=== PATIENT | male | born 1930 | race Caucasian/White ===

== ENCOUNTER → 2019-02-05 | Outpatient (REF) | payer MEDICARE, BC ==
[~2019-02-05] MED LIST: AMLODIPINE5 MG PO; ASPIRIN CHEWABL81 MG OR; BAYER ASA325 MG PO; CARVEDILOL25 MG PO; COREG25 MG PO; COZAAR100 MG PO; DIOVAN160 MG PO; JANUVIA50 MG PO; LISINOP/HCTZ1 TA1 PO; LORTAB 7.5 PO; METFORMIN1000 MG PO; METFORMIN500 MG PO; SPIRONOLACT25 MG PO; VYTORIN 10/401 TAB PO; VYTORIN1 TA1 OR
[2019-02-05 11:23] LABS: HEMATOCRIT 41.3 % (39.0-50.0); HEMOGLOBIN 13.1 g/dl (14.0-18.0); IMMATURE GRANULOCYTES 0.3 % (0.0-5.0); MEAN CELL VOLUME 89.6 fL CALC (80.0-100.0); MEAN CORPUSCULAR HGB 28.4 pG CALC (26.0-32.0); MEAN CORPUSCULAR HGB CONC 31.7 g/L CALC (32.0-36.0); NEUT# 5.3 thou/uL (1.82-7.42); RED BLOOD COUNT 4.61 mill/uL (4.70-6.10); RED CELL DISTRI WIDTH 13.5 % (11.5-15.5)
[2019-02-05 11:40] LABS: ALBUMIN 3.7 g/dL (3.2-5.0); ALKALINE PHOSPHATASE 79 u/l (38-126); ANION GAP 15 (6-22 (CALC)); BILIRUBIN, TOTAL 0.9 mg/dL (0.0-1.4); BUN 34 mg/dL (8-23); BUN/CREATININE RATIO 35 (12-20 (CALC)); CALCULATED LDLCHOLESTEROL 72 mg/dL (62-129 (CALC)); CARBON DIOXIDE 28 mmol/l (22-30); CHLORIDE 100 mmol/l (95-108); CHOLESTEROL HDL RATIO 4.2 (<4.4 (CALC)); GFR > 60 ML/MIN (>=60 (CALC)); GFR FOR AFR.AMER. > 60 ML/MIN (>=60 (CALC)); HDL CHOLESTEROL 32 mg/dL (>=40); POTASSIUM 4.2 mmol/l (3.5-5.1); SGOT/AST 24 u/l (19-48); SODIUM 138 mmol/l (137-146); TOTAL CHOLESTEROL 135 mg/dl (0-199); TOTAL PROTEIN 6.3 g/dL (6.3-8.2); TOTAL TRIGLYCERIDES 153 mg/dl (30-149); VLDL CHOLESTROL 31 mg/dl (0-38 (CALC))
[2019-02-05 12:13] LABS: TSH, 3RD GENERATION 4.26 uIU/mL (0.47 - 4.68)
== END | disposition home or self-care (01) ==
LOC: LAB 10:30
PROVIDERS: ATTEND Internal Medicine
DX: Z12.5 Encounter for screening for malignant neoplasm of prostate (principal); E11.9 Type 2 diabetes mellitus without complications; I10 Essential (primary) hypertension; E78.49 Other hyperlipidemia

== ENCOUNTER 2020-01-20 11:28 | Inpatient (IN) | payer MEDICARE, BC ==
[~2020-01-20] VITALS: Ht 180.3 cm; Wt 113.8 kg
--- NOTE | 2020-01-20 13:04 | NUR ---
PT TO ROOM VIA JAYLEN; AT BEDSIDE
[2020-01-20 13:37] LABS: HEMATOCRIT 39.9 % (39.0-50.0); HEMOGLOBIN 12.6 g/dl (14.0-18.0); IMMATURE GRANULOCYTES 0.2 % (0.0-5.0); MEAN CELL VOLUME 88.3 fL CALC (80.0-100.0); MEAN CORPUSCULAR HGB 27.9 pG CALC (26.0-32.0); MEAN CORPUSCULAR HGB CONC 31.6 g/L CALC (32.0-36.0); NEUT# 3.25 thou/uL (1.82-7.42); RED BLOOD COUNT 4.52 mill/uL (4.70-6.10); RED CELL DISTRI WIDTH 14.8 % (11.5-15.5)
--- NOTE | 2020-01-20 14:00 | NUR ---
PT SITTING UP ON STRETCHER; NO S/S OF DISTRESS NOTED; IV ANTIBIOTICS INFUSING; VSS; PT ADVISED ON CONTINUED WAIT TIME; DENIES ANY NEEDS AT THIS TIME; CALL LIGHT WITHIN REACH; WILL CONTINUE TO MONITOR
[2020-01-20] MEDS ORDERED: LISINOP/HCTZ1 TA1 PO (14:18)
[2020-01-20 14:21] LABS: CREATININE 1.7 mg/dL (0.7-1.3); POTASSIUM 3.5 mmol/l (3.5-5.1)
[2020-01-20] MEDS ORDERED: SIMVASTATIN40 MG PO (14:22)
[2020-01-20] MEDS ORDERED: LANTUS100 UNIT/M IJ (14:23)
[2020-01-20] MEDS ORDERED: EQ ASPIRIN81 M1 PO (14:24)
[2020-01-20] MEDS ORDERED: MELATONIN1 MG PO (14:24)
--- NOTE | 2020-01-20 15:00 | NUR ---
PT RESTING ON STRETCHER; NO S/S OF DISTRESS NOTED; PT DENIES ANY OTHER NEEDS AT THIS TIME; VSS; PT ADVISED OF CONTINUED WAIT TIME; WILL CONTINUE TO MONITOR
--- NOTE | 2020-01-20 16:00 | NUR ---
DR RODARTE AT BEDSIDE TO DISCUSS POC AND FINDINGS; HEPARIN DRIP INFUSING PER STANDING ORDER; PT DENIES ANY NEEDS AT THIS TIME;
--- NOTE | 2020-01-20 17:00 | NUR ---
PT ASSSITED TO BR AT THIS TIME; PT AMB WITH WEAK GAIT; PT DENIES ANY NEEDS AT THIS TIME;
--- NOTE | 2020-01-20 18:00 | NUR ---
PT SITTING UP ON STRETCHER; MEAL TRAY GIVEN; ADVISED OF CONTINUED WAIT TIME
--- NOTE | 2020-01-20 18:15 | NUR ---
PT ARRIVED TO THE UNIT VIA STRETCHER ACCOMPANIED BY STAFF. IV SITE IS FREE FROM REDNESS OR EDEMA. PT HAD A MASK IN PLACE,
[2020-01-20 18:20] VITALS: BP 154/74
--- NOTE | 2020-01-20 18:20 | NUR ---
Admission Note Report Given to: SHARON REED Transported by: Wheelchair X Stretcher Transported with: X Nurse Transporter X Patent IV O2 Assistant Credit Manager Location: ICU X MS2
--- NOTE | 2020-01-20 20:49 | NUR ---
PT ASSESSMENT AND ADMISSION COMPLETED AT THIS TIME. PT LOCX4. PT COUGHING W/PRODUCTIVE YELLOW SPUTUM PRODUCED. REPORTS 1 LOOSE STOOL THIS DAY, DENIES EMESIS THIS DAY. WILL CONTINUE TO MONITOR, PT ENCOURAGED TO CALL NEEDS ARISE.
--- NOTE | 2020-01-20 22:25 | NUR ---
HEPARIN DRIP CHANGED PER STANDING ORDERS @800UN/16MLS/HR FOR PTT OF 73.7 AT THIS TIME. PT APPEARS TO BE TOLERATING WELL.
[2020-01-21] VITALS (9 sets, daily range): BP systolic 120–170; BP diastolic 45–76
--- NOTE | 2020-01-21 | NUR ---
ASSISTED PT TO RESTROOM AND BACK TO BED. DENIES ANY OTHER NEEDS. IVF AND HEP DRIP ARE RUNNING TO 20LFA, SITE APPEARS HEALTHY.
--- NOTE | 2020-01-21 03:40 | NUR ---
pt c/o bleeding from iv site. Small amount of blood coming from iv site, site redressed, appears healthy and pt instructed to call if he notices any bleeding at all. No other s/o bleeding at this time. EMERGENCY VETERINARY ASSISTANT in w/pt at this time upon my leaving room.
--- NOTE | 2020-01-21 05:27 | NUR ---
PT ASSISTED TO BATHROOM AND BACK TO BED. ASSISTED PT IN REPOSITIONING. DENIES ANY OTHER NEEDS.CALL LIGHT AT SIDE.
[2020-01-21 05:44] LABS: ALBUMIN 3.3 g/dL (3.2-5.0); BILIRUBIN, TOTAL 0.6 mg/dL (0.0-1.4); CREATININE 1.4 mg/dL (0.7-1.3); POTASSIUM 3.3 mmol/l (3.5-5.1); TOTAL PROTEIN 6.2 g/dL (6.3-8.2)
[2020-01-21 05:48] LABS: HEMATOCRIT 37.4 % (39.0-50.0); HEMOGLOBIN 11.9 g/dl (14.0-18.0); IMMATURE GRANULOCYTES 0.5 % (0.0-5.0); MEAN CELL VOLUME 86.6 fL CALC (80.0-100.0); MEAN CORPUSCULAR HGB 27.5 pG CALC (26.0-32.0); MEAN CORPUSCULAR HGB CONC 31.8 g/L CALC (32.0-36.0); NEUT# 1.45 thou/uL (1.82-7.42); RED BLOOD COUNT 4.32 mill/uL (4.70-6.10); RED CELL DISTRI WIDTH 14.3 % (11.5-15.5)
--- NOTE | 2020-01-21 07:50 | NUR ---
ASSESSMENT IS COMPLETEDD: IV SITE WAS PULLED OUT BY PT. CATHETER INTACT, HR IS REG,PULSES ARE STRONG X4, ABD IS SOFT WITH ACTIVE BS. PT HAS TRACE EDEMA NOTED ON ANKLES. BREATH SOUNDS ARE WHEEZING IN UPPER AND CLEAR IN LOWER. TELE MONITOR IN PLACE.
--- NOTE | 2020-01-21 09:22 | NUR ---
SPOKE WITH [facility] RE: HEPARIN SQ , WILL BE HELD DUE TO HAVING THE HEPARIN DRIP.
--- NOTE | 2020-01-21 10:26 | NUR ---
SPOKE WITH SIN RIVAS FROM ER, EXPLAINED THAT PT WAS BEING CHECKED BY OT AND PT , HAD HIM WALKING AND GETTING UP FROM THE BED,
--- NOTE | 2020-01-21 12:15 | NUR ---
PT HAS BEEN SITTING IN THE CHAIR. NO DISTRESS NOTED. IV SITE IS FREE FROM REDNESS OR EDMEA.
--- NOTE | 2020-01-21 16:15 | NUR ---
PT IS RELAXING IN BED WITH NO DISTRESS NOTED. IV SITE IS FREE FROM REDNESS OR EDEMA.
[2020-01-21] MEDS ORDERED: COREG25 MG PO (16:39)
--- NOTE | 2020-01-21 17:45 | NUR ---
PT TRANSPORTED TO HAVE CT SCAN OF THE CHEST. CONTINUE TO OSBERVE AND MONITOR.
--- NOTE | 2020-01-21 20:05 | NUR ---
PT SLEEPING AT THIS TIME. NO S/O DISTRESS NOTED.
--- NOTE | 2020-01-21 21:45 | NUR ---
TREKKING GUIDE RECEIVED PHONE CALL FROM RADIOLOGIST REGARDING SCAN RESULTS FOR PT. PHYSICIAN NOTIFIED, NO NEW ORDERS AT THIS TIME. PHYSICIAN STATED THAT HE WILL MEET W/PT AND FAMILY IN THE MORNING REGARDING RESULTS AND POC.
--- NOTE | 2020-01-22 00:34 | NUR ---
PT V/S ASSESSED AND PT MEDICATED ORDERS PROVIDE. DENIES ANY OTHER NEEDS AT THIS TIME. CALL LIGHT IS AT SIDE. NO S/O DISTRESS NOTED. PT REMARKED THAT HE THINKS HE IS GOING HOME TOMORROW, I ENCOURAGED PT TO HAVE OR FAMILY MEMBER TO COME IN THE MORNING SO THAT THEY WOULD BE HERE FOR DOCTOR TO DISCUSS DISCHARGE AND CARE. HE REPLIED, "THEY CAN GET HERE IN 5 MINUTES." WILL CONTINUE TO MONITOR.
--- NOTE | 2020-01-22 04:30 | NUR ---
PT MEDICATED ORDERS PROVIDE AND V/S ASSESSED AT THIS TIME. PT DENIES ANY OTHER NEEDS AT THIS TIME.
[2020-01-22 04:32] VITALS: BP 138/68
[2020-01-22 05:39] LABS: HEMATOCRIT 38.6 % (39.0-50.0); HEMOGLOBIN 11.9 g/dl (14.0-18.0); MEAN CELL VOLUME 87.9 fL CALC (80.0-100.0); MEAN CORPUSCULAR HGB 27.1 pG CALC (26.0-32.0); MEAN CORPUSCULAR HGB CONC 30.8 g/L CALC (32.0-36.0); RED BLOOD COUNT 4.39 mill/uL (4.70-6.10); RED CELL DISTRI WIDTH 14.8 % (11.5-15.5)
[2020-01-22 06:02] LABS: ANION GAP 14 (6-22 (CALC)); BUN 36 mg/dL (8-23); BUN/CREATININE RATIO 37 (12-20 (CALC)); CARBON DIOXIDE 26 mmol/l (22-30); CHLORIDE 101 mmol/l (95-108); GFR > 60 ML/MIN (>=60 (CALC)); GFR FOR AFR.AMER. > 60 ML/MIN (>=60 (CALC)); MAGNESIUM 1.7 mg/dL (1.6-2.3); SODIUM 137 mmol/l (137-146)
[2020-01-22 06:05] LABS: POTASSIUM 4.1 mmol/l (3.5-5.1)
[2020-01-22 08:00] VITALS: BP 138/61
[2020-01-22 11:27] VITALS: BP 156/63
[2020-01-22 15:33] VITALS: BP 168/73
[2020-01-22 19:05] VITALS: BP 155/77
--- NOTE | 2020-01-22 19:55 | NUR ---
PT RESTING IN BED. RESPIRATIONS EVEN AND UNLABORED, LUNGS SOUND DIMINISHED. PEDAL PULSES STRONG. PT DENIES ANY PAIN OR DISCOMFORT AT THIS TIME. TELE IN PLACE. CALL KUMAR WITHIN REACH. WILL CONTINUE TO MONITOR.
--- NOTE | 2020-01-22 23:17 | NUR ---
PT RESTING IN BED. NO S/S OF DISTRESS AT THIS TIME. SAFETY PRECAUTIONS IN PLACE. WILL CONTINUE TO MONITOR.
[2020-01-22 23:37] VITALS: BP 134/53
--- NOTE | 2020-01-23 04:10 | NUR ---
PT RESTING IN BED. NO S/S OF DISTRESS
[2020-01-23 04:35] VITALS: BP 149/73
--- NOTE | 2020-01-23 06:36 | NUR ---
01/22/20 The patient is seen for gait training. He ambulated with FWW about 120 feet with vitals stable and no LOB He has done extrememly well with mobilization and funcitona and is approaching baseline function. Am Pac score is 16 and he should be ok to go home from a functional standpoint
[2020-01-23 08:00] VITALS: BP 167/77
--- NOTE | 2020-01-23 08:00 | NUR ---
ASSESSMENT IS COMPLETED: IV SITE IS FREE FROM REDNESS OR EDEMA. HR IS REG,PULSES ARE STRONG X4, ABD IS SOFT WITH ACTIVE BS, BREATH SOUNDS ARE CLEAR,BILATERALLY, NO C/O SOB. TELE MONITOR IN PLACE. CONTINUE TO OBSERVE AND MONITOR.
--- NOTE | 2020-01-23 10:29 | NUR ---
PT WAS SEEN FOR GT. HE AMBULATED IN THE HALLWAY WITH RW AND SBA WITH STEADY GAIT ~100 FT X3. HE PERFORMED ALL FA SAFELY AND INDEPENDENTLY. DENIES SOB AND OTHER ADVERSE RXNS POST TX. [facility] SCORE TODAY: 20 POINTS. PT IS SAFE TO BE DISCHARGED AT HOME.
[2020-01-23] MEDS ORDERED: DOXYCYCL HYC100 MG PO (11:03)
[2020-01-23] MEDS ORDERED: MEDDOSEPAK PO (11:04)
[2020-01-23] MEDS ORDERED: TAMIFLU SUSP 6MG/ML PO (11:06)
--- NOTE | 2020-01-23 11:09 | NUR ---
AMBULATED PT WITH NO OXYGEN WAS 93%
--- NOTE | 2020-01-23 12:00 | NUR ---
PT IS RELAXING IN CHAIR, NO DISTRESS NOTED. IV SITE IS FREE FROM REDNESS OR EDEMA.
[2020-01-23 12:19] VITALS: BP 160/73
--- NOTE | 2020-01-23 13:15 | NUR ---
IV SITE DISCONTINUED CATHETER INTACT. NO DISTRESS NOTED. DISCHARGE INSTRUCTIONS GIVEN AND VERBALIZED UNDERSTANDING. FAMILY HERE TO TRANSPORT PT HOME.
--- NOTE | 2020-01-23 13:32 | NUR ---
Discharge instructions given. Patient verbalizes understanding of same. Discharged in stable condition via Wheelchair to Home with family. All belongings sent with pt.
== END 2020-01-23 13:32 | disposition home health service (06) | DRG 193 ==
LOC: ED 11:28 → ED-I 16:21 → ED 16:51 → MS2 16:52
PROVIDERS: Family Medicine; Internal Medicine; Nurse Practitioner Family; ADMIT Internal Medicine; ATTEND Internal Medicine
DX: J10.00 Influenza due to other identified influenza virus with unspecified type of pneumonia (principal); I21.A1 Myocardial infarction type 2; N17.9 Acute kidney failure, unspecified; C34.92 Malignant neoplasm of unspecified part of left bronchus or lung; C34.91 Malignant neoplasm of unspecified part of right bronchus or lung; C38.3 Malignant neoplasm of mediastinum, part unspecified; I10 Essential (primary) hypertension; E11.9 Type 2 diabetes mellitus without complications; I25.10 Atherosclerotic heart disease of native coronary artery without angina pectoris; E78.5 Hyperlipidemia, unspecified; E86.0 Dehydration; I95.9 Hypotension, unspecified; Z79.4 Long term (current) use of insulin; Z95.5 Presence of coronary angioplasty implant and graft; Z87.891 Personal history of nicotine dependence; Z85.820 Personal history of malignant melanoma of skin
CPT/HCPCS: G0378; J1644

== ENCOUNTER 2020-01-27 00:39 | Observation (INO) | payer MEDICARE, BC ==
[~2020-01-27] VITALS: Ht 180.3 cm; Wt 109.3 kg
[~2020-01-27 00:39] MED LIST changes: +DOXYCYCL HYC100 MG PO; +EQ ASPIRIN81 M1 PO; +LANTUS100 UNIT/M IJ; +MEDDOSEPAK PO; +MELATONIN1 MG PO; +SIMVASTATIN40 MG PO; +TAMIFLU SUSP 6MG/ML PO
[2020-01-27 01:49] LABS: HEMATOCRIT 40.5 % (39.0-50.0); IMMATURE GRANULOCYTES 1.6 % (0.0-5.0); MEAN CELL VOLUME 86.5 fL CALC (80.0-100.0); MEAN CORPUSCULAR HGB 27.8 pG CALC (26.0-32.0); MEAN CORPUSCULAR HGB CONC 32.1 g/L CALC (32.0-36.0); NEUT# 6.89 thou/uL (1.82-7.42); RED BLOOD COUNT 4.68 mill/uL (4.70-6.10); RED CELL DISTRI WIDTH 14.2 % (11.5-15.5)
[2020-01-27 02:01] LABS: ALBUMIN 3.4 g/dL (3.2-5.0); ALKALINE PHOSPHATASE 69 u/l (38-126); ANION GAP 8 (6-22 (CALC)); BUN 27 mg/dL (8-23); BUN/CREATININE RATIO 32 (12-20 (CALC)); CARBON DIOXIDE 31 mmol/l (22-30); CHLORIDE 100 mmol/l (95-108); CREATININE 0.9 mg/dL (0.7-1.3); GFR > 60 ML/MIN (>=60 (CALC)); GFR FOR AFR.AMER. > 60 ML/MIN (>=60 (CALC)); MAGNESIUM 1.4 mg/dL (1.6-2.3); POTASSIUM 3.7 mmol/l (3.5-5.1); SGOT/AST 36 u/l (19-48); SODIUM 135 mmol/l (137-146); TOTAL PROTEIN 6.1 g/dL (6.3-8.2)
[2020-01-27 02:02] LABS: BILIRUBIN, TOTAL 1.1 mg/dL (0.0-1.4)
[2020-01-27 02:03] LABS: ACT PARTIAL THROMBO TIME 23.6 SECONDS (20.0-32.5); D-DIMER 0.94 mg/L (0.19-0.60); INTERNATIONAL NORMALIZED RATIO 1.2 RATIO (0.7-1.3)
[2020-01-27 03:30] VITALS: BP 188/83
[2020-01-27 04:09] VITALS: BP 176/78
[2020-01-27 05:30] VITALS: BP 160/72
[2020-01-27 08:00] VITALS: BP 169/67
[2020-01-27 15:53] VITALS: BP 169/87
[2020-01-27 19:16] VITALS: BP 171/69
[2020-01-28 04:50] VITALS: BP 147/77
[2020-01-28 08:00] VITALS: BP 146/72
[2020-01-28 11:30] LABS: HEMATOCRIT 40.4 % (39.0-50.0); MEAN CELL VOLUME 86.1 fL CALC (80.0-100.0); MEAN CORPUSCULAR HGB 27.7 pG CALC (26.0-32.0); MEAN CORPUSCULAR HGB CONC 32.2 g/L CALC (32.0-36.0); RED BLOOD COUNT 4.69 mill/uL (4.70-6.10); RED CELL DISTRI WIDTH 14.3 % (11.5-15.5)
[2020-01-28 11:51] LABS: ANION GAP 11 (6-22 (CALC)); BUN 35 mg/dL (8-23); BUN/CREATININE RATIO 38 (12-20 (CALC)); CARBON DIOXIDE 31 mmol/l (22-30); CHLORIDE 96 mmol/l (95-108); CREATININE 0.9 mg/dL (0.7-1.3); GFR > 60 ML/MIN (>=60 (CALC)); GFR FOR AFR.AMER. > 60 ML/MIN (>=60 (CALC)); MAGNESIUM 1.5 mg/dL (1.6-2.3); SODIUM 134 mmol/l (137-146)
[2020-01-28 15:14] VITALS: BP 148/66
[2020-01-28 19:08] VITALS: BP 155/75
[2020-01-29 04:34] VITALS: BP 136/58
[2020-01-29 05:38] LABS: MEAN CELL VOLUME 86.9 fL CALC (80.0-100.0); MEAN CORPUSCULAR HGB 27.5 pG CALC (26.0-32.0); MEAN CORPUSCULAR HGB CONC 31.7 g/L CALC (32.0-36.0); RED BLOOD COUNT 4.72 mill/uL (4.70-6.10); RED CELL DISTRI WIDTH 14.5 % (11.5-15.5)
[2020-01-29 06:04] LABS: ANION GAP 10 (6-22 (CALC)); BUN 37 mg/dL (8-23); BUN/CREATININE RATIO 44 (12-20 (CALC)); CARBON DIOXIDE 31 mmol/l (22-30); CHLORIDE 98 mmol/l (95-108); CREATININE 0.9 mg/dL (0.7-1.3); GFR > 60 ML/MIN (>=60 (CALC)); GFR FOR AFR.AMER. > 60 ML/MIN (>=60 (CALC)); SODIUM 134 mmol/l (137-146)
[2020-01-29 06:38] LABS: MAGNESIUM 2.3 mg/dL (1.6-2.3)
[2020-01-29 08:00] VITALS: BP 144/73
[2020-01-29 08:22] VITALS: BP 144/73
[2020-01-29] MEDS ORDERED: IPRATROPIU0.5 MG/3 M IN (13:19)
[2020-01-29] MEDS ORDERED: PREDNISONE10 MG PO (13:19)
[2020-01-29] MEDS ORDERED: NEBULIZER COMPRESSOR (13:20)
== END 2020-01-29 13:34 | disposition home health service (06) ==
LOC: ED 00:39 → ED-I 02:32 → ED 02:48 → MS2 02:49
PROVIDERS: Family Medicine; Nurse Practitioner Family; ADMIT Internal Medicine; ATTEND Internal Medicine
DX: J96.21 Acute and chronic respiratory failure with hypoxia (principal); J45.909 Unspecified asthma, uncomplicated; J11.00 Influenza due to unidentified influenza virus with unspecified type of pneumonia; I10 Essential (primary) hypertension; I25.10 Atherosclerotic heart disease of native coronary artery without angina pectoris; E11.9 Type 2 diabetes mellitus without complications; R91.8 Other nonspecific abnormal finding of lung field; J98.59 Other diseases of mediastinum, not elsewhere classified; E83.42 Hypomagnesemia; Z95.5 Presence of coronary angioplasty implant and graft; Z87.891 Personal history of nicotine dependence; Z79.4 Long term (current) use of insulin
CPT/HCPCS: G0378; J1650; J3475

== ENCOUNTER 2021-09-16 16:01 | Inpatient (IN) | payer MEDICARE, BC ==
[~2021-09-16] VITALS: Ht 180.3 cm; Wt 131.4 kg
[~2021-09-16 16:01] MED LIST changes: +IPRATROPIU0.5 MG/3 M IN; +NEBULIZER COMPRESSOR; +PREDNISONE10 MG PO
[2021-09-16 18:04] LABS: HEMATOCRIT 38.4 % (39.0-50.0); HEMOGLOBIN 11.5 g/dl (14.0-18.0); IMMATURE GRANULOCYTES 0.1 % (0.0-5.0); MEAN CELL VOLUME 95.3 fL CALC (80.0-100.0); MEAN CORPUSCULAR HGB 28.5 pG CALC (26.0-32.0); MEAN CORPUSCULAR HGB CONC 29.9 g/dL CAL (32.0-36.0); NEUT# 5.66 thou/uL (1.82-7.42); RED BLOOD COUNT 4.03 mill/uL (4.70-6.10); RED CELL DISTRI WIDTH 15.7 % (11.5-15.5)
[2021-09-16 18:16] LABS: BILIRUBIN, TOTAL 1.2 mg/dL (0.0-1.4); CREATININE 1.7 mg/dL (0.7-1.3); POTASSIUM 3.9 mmol/l (3.5-5.1); TOTAL PROTEIN 7.3 g/dL (6.3-8.2)
[2021-09-16 18:22] LABS: ACT PARTIAL THROMBO TIME 25.9 SECONDS (20.0-32.5); INTERNATIONAL NORMALIZED RATIO 1.4 RATIO (0.7-1.3); PROTHROMBIN TIME 13.9 SECONDS (9.0-12.5)
[2021-09-16] MEDS ORDERED: FUROSEMIDE20 MG PO (18:36)
[2021-09-16] MEDS ORDERED: METOLAZONE2.5 MG PO (18:38)
[2021-09-16] MEDS ORDERED: HYDRALAZINE10 MG PO (18:40)
[2021-09-16] MEDS ORDERED: POT CHLORIDE10 ME5 PO (18:41)
[2021-09-16 21:10] VITALS: BP 109/59
[2021-09-17] VITALS (8 sets, daily range): BP systolic 87–131; BP diastolic 38–65
[2021-09-17 00:13] LABS: URINE BILIRUBIN - DIPSTICK NEGATIVE (NEGATIVE); URINE BLOOD DIPSTICK NEGATIVE (NEGATIVE); URINE COLOR YELLOW; URINE GLUCOSE - DIPSTICK NEGATIVE (NEGATIVE); URINE KETONE NEGATIVE (NEGATIVE); URINE LEUK ESTERASE NEGATIVE (NEGATIVE); URINE NITRITE - DIPSTICK NEGATIVE (Negative); URINE PROTEIN - DIPSTICK TRACE mg/dL (NEG-TRACE); URINE UROBILINOGEN - DIPSTICK 0.2 E.U./dL (0.2)
[2021-09-17 06:27] LABS: HEMATOCRIT 36.1 % (39.0-50.0); MEAN CORPUSCULAR HGB 29.3 pG CALC (26.0-32.0); MEAN CORPUSCULAR HGB CONC 30.5 g/dL CAL (32.0-36.0); RED BLOOD COUNT 3.76 mill/uL (4.70-6.10); RED CELL DISTRI WIDTH 15.9 % (11.5-15.5)
[2021-09-17 06:34] LABS: CHOLESTEROL HDL RATIO 2.8 (<4.4 (CALC)); CREATININE 1.7 mg/dL (0.7-1.3); MAGNESIUM 1.9 mg/dL (1.6-2.3); POTASSIUM 3.7 mmol/l (3.5-5.1)
[2021-09-18 03:45] VITALS: BP 113/60
[2021-09-18 06:06] LABS: HEMATOCRIT 33.9 % (39.0-50.0); HEMOGLOBIN 10.8 g/dl (14.0-18.0); MEAN CELL VOLUME 91.9 fL CALC (80.0-100.0); MEAN CORPUSCULAR HGB 29.3 pG CALC (26.0-32.0); MEAN CORPUSCULAR HGB CONC 31.9 g/dL CAL (32.0-36.0); RED BLOOD COUNT 3.69 mill/uL (4.70-6.10); RED CELL DISTRI WIDTH 15.5 % (11.5-15.5)
[2021-09-18 06:20] LABS: CREATININE 1.5 mg/dL (0.7-1.3); MAGNESIUM 1.7 mg/dL (1.6-2.3); POTASSIUM 3.4 mmol/l (3.5-5.1)
[2021-09-18 07:25] VITALS: BP 118/80
[2021-09-18 13:23] VITALS: BP 112/70
[2021-09-18 16:30] VITALS: BP 120/84
[2021-09-18 19:25] VITALS: BP 133/66
[2021-09-19] VITALS (7 sets, daily range): BP systolic 99–141; BP diastolic 46–63
[2021-09-19 04:54] LABS: HEMOGLOBIN 10.7 g/dl (14.0-18.0); IMMATURE GRANULOCYTES 0.2 % (0.0-5.0); MEAN CELL VOLUME 93.2 fL CALC (80.0-100.0); MEAN CORPUSCULAR HGB 29.3 pG CALC (26.0-32.0); MEAN CORPUSCULAR HGB CONC 31.5 g/dL CAL (32.0-36.0); NEUT# 4.16 thou/uL (1.82-7.42); RED BLOOD COUNT 3.65 mill/uL (4.70-6.10); RED CELL DISTRI WIDTH 15.6 % (11.5-15.5)
[2021-09-19 05:10] LABS: CREATININE 1.6 mg/dL (0.7-1.3); MAGNESIUM 1.7 mg/dL (1.6-2.3); POTASSIUM 3.3 mmol/l (3.5-5.1)
[2021-09-20] VITALS: BP 97/48
[2021-09-20 04:00] VITALS: BP 109/51
[2021-09-20 04:56] LABS: HEMATOCRIT 33.6 % (39.0-50.0); HEMOGLOBIN 10.5 g/dl (14.0-18.0); IMMATURE GRANULOCYTES 0.2 % (0.0-5.0); MEAN CELL VOLUME 93.3 fL CALC (80.0-100.0); MEAN CORPUSCULAR HGB 29.2 pG CALC (26.0-32.0); MEAN CORPUSCULAR HGB CONC 31.3 g/dL CAL (32.0-36.0); NEUT# 3.76 thou/uL (1.82-7.42); RED BLOOD COUNT 3.6 mill/uL (4.70-6.10); RED CELL DISTRI WIDTH 15.1 % (11.5-15.5)
[2021-09-20 05:02] LABS: CREATININE 1.6 mg/dL (0.7-1.3); MAGNESIUM 1.7 mg/dL (1.6-2.3); POTASSIUM 3.1 mmol/l (3.5-5.1)
[2021-09-20 07:56] VITALS: BP 123/64
[2021-09-20 11:04] VITALS: BP 122/58
[2021-09-20] MEDS ORDERED: BUMETANIDE1 MG PO (11:28)
[2021-09-20] MEDS ORDERED: NYSTATIN100000 UN2 TOP (11:32)
[2021-09-20] MEDS ORDERED: KLOR-CON M2020 MEQ PO (11:39)
[2021-09-20] MEDS ORDERED: NYSTOP100000 UNI TOP (11:44)
[2021-09-20 15:30] VITALS: BP 155/68
== END 2021-09-20 17:02 | disposition home health service (06) | DRG 293 ==
LOC: ED 16:01 → ED-I 18:25 → ED 18:45 → MS2 18:46
PROVIDERS: Nurse Practitioner; ADMIT Internal Medicine; ATTEND Internal Medicine
PROC: 0T9B70Z Drainage of Bladder with Drainage Device, Via Natural or Artificial Opening (ICD-10-PCS; principal; 2021-09-18)
DX: I13.0 Hypertensive heart and chronic kidney disease with heart failure and stage 1 through stage 4 chronic kidney disease, or unspecified chronic kidney disease (principal); I50.814 Right heart failure due to left heart failure; I25.10 Atherosclerotic heart disease of native coronary artery without angina pectoris; E11.22 Type 2 diabetes mellitus with diabetic chronic kidney disease; N18.9 Chronic kidney disease, unspecified; D64.9 Anemia, unspecified; R09.02 Hypoxemia; J44.9 Chronic obstructive pulmonary disease, unspecified; E78.5 Hyperlipidemia, unspecified; B37.2 Candidiasis of skin and nail; Z95.5 Presence of coronary angioplasty implant and graft; Z85.820 Personal history of malignant melanoma of skin; Z79.4 Long term (current) use of insulin; Z87.891 Personal history of nicotine dependence; Z20.822 Contact with and (suspected) exposure to COVID-19
CPT/HCPCS: G0378

== ENCOUNTER 2022-02-28 09:12 | Day surgery (SDC) | payer MEDICARE, BC ==
[~2022-02-28] VITALS: Ht 177.8 cm; Wt 105.7 kg
[~2022-02-28 09:12] MED LIST changes: +ACETAMIN500 M2 PO; +BASAGLAR K100 UNIT/M SC; +BUMETANIDE1 MG PO; +CYANOCOBAL1000 MCG/M IM; +ELIQUIS5 MG PO; +FARXIGA10 MG PO; +FUROSEMIDE20 MG PO; +HYDRALAZINE10 MG PO; +KLOR-CON M2020 MEQ PO; +METOLAZONE2.5 MG PO; +MIRALAX17 GM/SCOO PO; +NYSTATIN100000 UN2 TOP; +NYSTOP100000 UNI TOP; +POT CHLORIDE10 ME5 PO; +PRESERVISION PO
[2022-02-28 14:52] VITALS: BP 119/67
== END 2022-02-28 14:30 | disposition home or self-care (01) ==
LOC: ENDO 09:12
PROVIDERS: ATTEND Surgery
PROC: 0DBH8ZX Excision of Cecum, Via Natural or Artificial Opening Endoscopic, Diagnostic (ICD-10-PCS; principal; 2022-02-28)
PROC: 0DBL8ZX Excision of Transverse Colon, Via Natural or Artificial Opening Endoscopic, Diagnostic (ICD-10-PCS; 2022-02-28)
PROC: 0DB68ZX Excision of Stomach, Via Natural or Artificial Opening Endoscopic, Diagnostic (ICD-10-PCS; 2022-02-28)
DX: D50.9 Iron deficiency anemia, unspecified (principal); D12.0 Benign neoplasm of cecum; D12.3 Benign neoplasm of transverse colon; K57.30 Diverticulosis of large intestine without perforation or abscess without bleeding; K64.8 Other hemorrhoids; K31.7 Polyp of stomach and duodenum; I10 Essential (primary) hypertension; E11.9 Type 2 diabetes mellitus without complications; Z85.118 Personal history of other malignant neoplasm of bronchus and lung; Z85.238 Personal history of other malignant neoplasm of thymus; Z95.5 Presence of coronary angioplasty implant and graft

== ENCOUNTER 2022-07-25 15:54 | Inpatient (IN) | payer MEDICARE, BC ==
[~2022-07-25] VITALS: Ht 180.3 cm; Wt 110.0 kg
[~2022-07-25 15:54] MED LIST changes: +ADLT ASA LOW81 MG PO; -EQ ASPIRIN81 M1 PO
[2022-07-25 16:41] VITALS: BP 132/63
[2022-07-25 17:31] LABS: HEMATOCRIT 35.7 % (39.0-50.0); HEMOGLOBIN 10.2 g/dl (14.0-18.0); IMMATURE GRANULOCYTES 0.1 % (0.0-5.0); MEAN CELL VOLUME 83.4 fL CALC (80.0-100.0); MEAN CORPUSCULAR HGB 23.8 pG CALC (26.0-32.0); MEAN CORPUSCULAR HGB CONC 28.6 g/dL CAL (32.0-36.0); NEUT# 4.62 thou/uL (1.82-7.42); RED BLOOD COUNT 4.28 mill/uL (4.70-6.10); RED CELL DISTRI WIDTH 19.4 % (11.5-15.5)
[2022-07-25 17:45] LABS: ALBUMIN 3.5 g/dL (3.2-5.0); BILIRUBIN, TOTAL 1.1 mg/dL (0.0-1.4); CREATININE 1.9 mg/dL (0.7-1.3); POTASSIUM 3.2 mmol/l (3.5-5.1); TOTAL PROTEIN 6.6 g/dL (6.3-8.2)
[2022-07-25] MEDS ORDERED: COZAAR100 MG PO (18:32)
[2022-07-25] MEDS ORDERED: TRELEGY ELLIPTA1 AER IN (18:33)
[2022-07-25] MEDS ORDERED: METOLAZONE2.5 MG PO (18:34)
[2022-07-25] MEDS ORDERED: MINOCYCLINE100 MG PO (18:34)
[2022-07-25] MEDS ORDERED: SILVADENE1 % EX (18:36)
[2022-07-25] MEDS ORDERED: LIDOCAINE PATCH 55 % TD (18:36)
[2022-07-25] MEDS ORDERED: POTASSIUM CHLO10 MEQ PO (18:37)
[2022-07-25] MEDS ORDERED: LORTAB 1010 MG PO (18:39)
[2022-07-25 18:58] VITALS: BP 114/62
[2022-07-26] VITALS (7 sets, daily range): BP systolic 78–113; BP diastolic 43–50
[2022-07-26 05:35] LABS: HEMATOCRIT 35.7 % (39.0-50.0); HEMOGLOBIN 10.3 g/dl (14.0-18.0); MEAN CORPUSCULAR HGB 24.2 pG CALC (26.0-32.0); MEAN CORPUSCULAR HGB CONC 28.9 g/dL CAL (32.0-36.0); RED BLOOD COUNT 4.25 mill/uL (4.70-6.10); RED CELL DISTRI WIDTH 19.3 % (11.5-15.5)
[2022-07-26 05:44] LABS: POTASSIUM 3.3 mmol/l (3.5-5.1)
[2022-07-26 05:58] LABS: MAGNESIUM 2.3 mg/dL (1.6-2.3)
[2022-07-26 07:43] LABS: URINE BILIRUBIN - DIPSTICK NEGATIVE (NEGATIVE); URINE BLOOD DIPSTICK NEGATIVE (NEGATIVE); URINE CLARITY CLEAR; URINE COLOR YELLOW; URINE GLUCOSE - DIPSTICK NEGATIVE (NEGATIVE); URINE KETONE NEGATIVE (NEGATIVE); URINE LEUK ESTERASE NEGATIVE (Negative); URINE NITRITE - DIPSTICK NEGATIVE (Negative); URINE PROTEIN - DIPSTICK NEGATIVE (NEG-TRACE); URINE SPECIFIC GRAVITY 1.015; URINE UROBILINOGEN - DIPSTICK 0.2 E.U./dL (0.2)
[2022-07-26] MEDS ORDERED: LEVEMIR100 UNIT SC (10:53)
[2022-07-26] MEDS ORDERED: IPRATROPIU0.5 MG/3 M IN (10:55)
[2022-07-27] VITALS (7 sets, daily range): BP systolic 99–136; BP diastolic 37–83
[2022-07-27 06:20] LABS: ALBUMIN 3.5 g/dL (3.2-5.0); MAGNESIUM 2.1 mg/dL (1.6-2.3)
[2022-07-27 14:58] LABS: HEMATOCRIT 34.6 % (39.0-50.0); HEMOGLOBIN 9.9 g/dl (14.0-18.0)
[2022-07-28] VITALS (8 sets, daily range): BP systolic 105–132; BP diastolic 30–60
[2022-07-28 05:32] LABS: HEMOGLOBIN 9.8 g/dl (14.0-18.0); IMMATURE GRANULOCYTES 0.3 % (0.0-5.0); MEAN CELL VOLUME 83.3 fL CALC (80.0-100.0); MEAN CORPUSCULAR HGB CONC 28.8 g/dL CAL (32.0-36.0); NEUT# 4.36 thou/uL (1.82-7.42); RED BLOOD COUNT 4.08 mill/uL (4.70-6.10); RED CELL DISTRI WIDTH 19.1 % (11.5-15.5)
[2022-07-28 06:08] LABS: ALBUMIN 3.5 g/dL (3.2-5.0); BILIRUBIN, TOTAL 1.2 mg/dL (0.0-1.4); CREATININE 1.9 mg/dL (0.7-1.3); MAGNESIUM 2.1 mg/dL (1.6-2.3); POTASSIUM 3.5 mmol/l (3.5-5.1); TOTAL PROTEIN 6.6 g/dL (6.3-8.2)
[2022-07-29 04:08] VITALS: BP 127/68
[2022-07-29 05:34] LABS: HEMATOCRIT 35.6 % (39.0-50.0); HEMOGLOBIN 10.2 g/dl (14.0-18.0); IMMATURE GRANULOCYTES 0.4 % (0.0-5.0); MEAN CELL VOLUME 83.4 fL CALC (80.0-100.0); MEAN CORPUSCULAR HGB 23.9 pG CALC (26.0-32.0); MEAN CORPUSCULAR HGB CONC 28.7 g/dL CAL (32.0-36.0); NEUT# 4.92 thou/uL (1.82-7.42); RED BLOOD COUNT 4.27 mill/uL (4.70-6.10); RED CELL DISTRI WIDTH 19.1 % (11.5-15.5)
[2022-07-29 06:08] LABS: CREATININE 1.9 mg/dL (0.7-1.3); MAGNESIUM 2.3 mg/dL (1.6-2.3); POTASSIUM 3.6 mmol/l (3.5-5.1)
[2022-07-29 06:34] VITALS: BP 114/47
[2022-07-29 14:45] VITALS: BP 95/62
[2022-07-29 18:59] VITALS: BP 108/43
[2022-07-29 23:30] VITALS: BP 113/66
[2022-07-30 03:35] VITALS: BP 143/76
[2022-07-30 04:39] LABS: HEMATOCRIT 34.2 % (39.0-50.0); HEMOGLOBIN 9.9 g/dl (14.0-18.0); MEAN CELL VOLUME 83.8 fL CALC (80.0-100.0); MEAN CORPUSCULAR HGB 24.3 pG CALC (26.0-32.0); MEAN CORPUSCULAR HGB CONC 28.9 g/dL CAL (32.0-36.0); NEUT# 5.2 thou/uL (1.82-7.42); RED BLOOD COUNT 4.08 mill/uL (4.70-6.10)
[2022-07-30 05:03] LABS: ALBUMIN 3.7 g/dL (3.2-5.0); CREATININE 1.7 mg/dL (0.7-1.3); MAGNESIUM 2.1 mg/dL (1.6-2.3)
[2022-07-30 05:21] LABS: POTASSIUM 3.4 mmol/l (3.5-5.1)
[2022-07-30 06:34] VITALS: BP 116/74
[2022-07-30 06:40] VITALS: BP 116/74
[2022-07-30 10:23] VITALS: BP 121/68
[2022-07-30 14:56] VITALS: BP 123/66
[2022-07-30 19:01] VITALS: BP 101/55
[2022-07-31] VITALS (7 sets, daily range): BP systolic 114–137; BP diastolic 43–79
[2022-07-31 05:01] LABS: HEMATOCRIT 36.2 % (39.0-50.0); HEMOGLOBIN 10.2 g/dl (14.0-18.0); IMMATURE GRANULOCYTES 0.3 % (0.0-5.0); MEAN CELL VOLUME 86.2 fL CALC (80.0-100.0); MEAN CORPUSCULAR HGB 24.3 pG CALC (26.0-32.0); MEAN CORPUSCULAR HGB CONC 28.2 g/dL CAL (32.0-36.0); NEUT# 4.06 thou/uL (1.82-7.42); RED BLOOD COUNT 4.2 mill/uL (4.70-6.10); RED CELL DISTRI WIDTH 19.4 % (11.5-15.5)
[2022-07-31 05:23] LABS: ALBUMIN 3.6 g/dL (3.2-5.0); CREATININE 1.9 mg/dL (0.7-1.3); MAGNESIUM 2.3 mg/dL (1.6-2.3); POTASSIUM 3.5 mmol/l (3.5-5.1)
[2022-08-01 00:03] VITALS: BP 114/54
[2022-08-01 04:12] VITALS: BP 102/37
[2022-08-01 05:20] LABS: HEMOGLOBIN 9.7 g/dl (14.0-18.0); IMMATURE GRANULOCYTES 0.2 % (0.0-5.0); MEAN CELL VOLUME 86.5 fL CALC (80.0-100.0); MEAN CORPUSCULAR HGB 24.7 pG CALC (26.0-32.0); MEAN CORPUSCULAR HGB CONC 28.5 g/dL CAL (32.0-36.0); NEUT# 4.12 thou/uL (1.82-7.42); RED BLOOD COUNT 3.93 mill/uL (4.70-6.10); RED CELL DISTRI WIDTH 19.5 % (11.5-15.5)
[2022-08-01 05:45] LABS: ALBUMIN 3.2 g/dL (3.2-5.0); CREATININE 1.6 mg/dL (0.7-1.3); POTASSIUM 3.2 mmol/l (3.5-5.1)
[2022-08-01 07:01] VITALS: BP 143/80
[2022-08-01 12:11] VITALS: BP 127/67
[2022-08-01 16:46] VITALS: BP 131/69
[2022-08-01 19:15] VITALS: BP 112/64
[2022-08-02 01:39] VITALS: BP 143/73
[2022-08-02 05:01] VITALS: BP 115/44
[2022-08-02 05:36] LABS: HEMATOCRIT 35.5 % (39.0-50.0); IMMATURE GRANULOCYTES 0.3 % (0.0-5.0); MEAN CELL VOLUME 87.4 fL CALC (80.0-100.0); MEAN CORPUSCULAR HGB 24.6 pG CALC (26.0-32.0); MEAN CORPUSCULAR HGB CONC 28.2 g/dL CAL (32.0-36.0); NEUT# 4.9 thou/uL (1.82-7.42); RED BLOOD COUNT 4.06 mill/uL (4.70-6.10)
[2022-08-02 06:44] LABS: ALBUMIN 3.4 g/dL (3.2-5.0); BILIRUBIN, TOTAL 1.2 mg/dL (0.0-1.4); CREATININE 1.7 mg/dL (0.7-1.3); TOTAL PROTEIN 6.5 g/dL (6.3-8.2)
[2022-08-02 06:46] VITALS: BP 130/73
[2022-08-02 10:39] VITALS: BP 145/60
[2022-08-02 14:14] VITALS: BP 117/52
[2022-08-02 19:05] VITALS: BP 113/44
[2022-08-03] VITALS (8 sets, daily range): BP systolic 79–165; BP diastolic 49–69
[2022-08-03 05:32] LABS: HEMATOCRIT 35.5 % (39.0-50.0); HEMOGLOBIN 9.9 g/dl (14.0-18.0); IMMATURE GRANULOCYTES 0.4 % (0.0-5.0); MEAN CELL VOLUME 87.2 fL CALC (80.0-100.0); MEAN CORPUSCULAR HGB 24.3 pG CALC (26.0-32.0); MEAN CORPUSCULAR HGB CONC 27.9 g/dL CAL (32.0-36.0); NEUT# 4.84 thou/uL (1.82-7.42); RED BLOOD COUNT 4.07 mill/uL (4.70-6.10); RED CELL DISTRI WIDTH 20.1 % (11.5-15.5)
[2022-08-03 05:46] LABS: ALBUMIN 3.4 g/dL (3.2-5.0); CREATININE 1.4 mg/dL (0.7-1.3); POTASSIUM 3.3 mmol/l (3.5-5.1)
[2022-08-03 13:02] LABS: URINE BILIRUBIN - DIPSTICK NEGATIVE (NEGATIVE); URINE BLOOD DIPSTICK NEGATIVE (NEGATIVE); URINE CLARITY CLEAR; URINE COLOR YELLOW; URINE GLUCOSE - DIPSTICK NEGATIVE (NEGATIVE); URINE KETONE NEGATIVE (NEGATIVE); URINE LEUK ESTERASE NEGATIVE (Negative); URINE NITRITE - DIPSTICK NEGATIVE (Negative); URINE PROTEIN - DIPSTICK NEGATIVE (NEG-TRACE)
[2022-08-03] MEDS ORDERED: ELIQUIS5 MG PO (13:26)
[2022-08-04] VITALS (9 sets, daily range): BP systolic 106–152; BP diastolic 40–88
[2022-08-04 05:20] LABS: HEMATOCRIT 36.9 % (39.0-50.0); HEMOGLOBIN 10.6 g/dl (14.0-18.0); IMMATURE GRANULOCYTES 0.3 % (0.0-5.0); MEAN CELL VOLUME 86.6 fL CALC (80.0-100.0); MEAN CORPUSCULAR HGB 24.9 pG CALC (26.0-32.0); MEAN CORPUSCULAR HGB CONC 28.7 g/dL CAL (32.0-36.0); NEUT# 4.7 thou/uL (1.82-7.42); RED BLOOD COUNT 4.26 mill/uL (4.70-6.10); RED CELL DISTRI WIDTH 20.3 % (11.5-15.5)
[2022-08-04 05:36] LABS: ALBUMIN 3.5 g/dL (3.2-5.0); ALKALINE PHOSPHATASE 184 u/l (38-126); BILIRUBIN, TOTAL 1.5 mg/dL (0.0-1.4); BUN 66 mg/dL (8-23); BUN/CREATININE RATIO 53 (12-20 (CALC)); CHLORIDE 88 mmol/l (95-108); CREATININE 1.2 mg/dL (0.7-1.3); GFR FOR AFR.AMER. > 60 ML/MIN (>=60 (CALC)); GFR OTHER RACES 57 ML/MIN (>=60 (CALC)); MAGNESIUM 2.1 mg/dL (1.6-2.3); POTASSIUM 3.1 mmol/l (3.5-5.1); SGOT/AST 32 u/l (19-48); SODIUM 143 mmol/l (137-146); TOTAL PROTEIN 6.8 g/dL (6.3-8.2)
[2022-08-04 05:43] LABS: ANION GAP 9 (6-22 (CALC))
[2022-08-04 05:49] LABS: CARBON DIOXIDE 49 mmol/l (22-30)
[2022-08-05 04:47] VITALS: BP 99/50
[2022-08-05 06:20] LABS: HEMATOCRIT 35.6 % (39.0-50.0); HEMOGLOBIN 10.2 g/dl (14.0-18.0); IMMATURE GRANULOCYTES 0.4 % (0.0-5.0); MEAN CELL VOLUME 87.5 fL CALC (80.0-100.0); MEAN CORPUSCULAR HGB 25.1 pG CALC (26.0-32.0); MEAN CORPUSCULAR HGB CONC 28.7 g/dL CAL (32.0-36.0); NEUT# 3.92 thou/uL (1.82-7.42); RED BLOOD COUNT 4.07 mill/uL (4.70-6.10); RED CELL DISTRI WIDTH 20.1 % (11.5-15.5)
[2022-08-05 06:46] VITALS: BP 117/41
[2022-08-05 06:50] LABS: ALBUMIN 3.1 g/dL (3.2-5.0); BUN 64 mg/dL (8-23); CHLORIDE 87 mmol/l (95-108); CREATININE 1.3 mg/dL (0.7-1.3); GFR FOR AFR.AMER. > 60 ML/MIN (>=60 (CALC)); GFR OTHER RACES 52 ML/MIN (>=60 (CALC)); POTASSIUM 3.4 mmol/l (3.5-5.1); SODIUM 140 mmol/l (137-146)
[2022-08-05 07:11] LABS: CARBON DIOXIDE 45 mmol/l (22-30)
[2022-08-05 10:13] VITALS: BP 119/72
[2022-08-05 12:13] VITALS: BP 132/75
[2022-08-05] MEDS ORDERED: ELIQUIS2.5 MG PO (12:17)
[2022-08-05] MEDS ORDERED: LORTAB 1010 MG PO (12:17)
[2022-08-05 14:36] VITALS: BP 121/67
== END 2022-08-05 15:35 | DRG 291 ==
LOC: MS2 15:54
PROVIDERS: Internal Medicine; Internal Medicine Nephrology; Nurse Practitioner; ADMIT Internal Medicine; ATTEND Internal Medicine
DX: I13.0 Hypertensive heart and chronic kidney disease with heart failure and stage 1 through stage 4 chronic kidney disease, or unspecified chronic kidney disease (principal); I50.33 Acute on chronic diastolic (congestive) heart failure; N17.9 Acute kidney failure, unspecified; I48.20 Chronic atrial fibrillation, unspecified; E87.3 Alkalosis; E11.22 Type 2 diabetes mellitus with diabetic chronic kidney disease; N18.30 Chronic kidney disease, stage 3 unspecified; D63.1 Anemia in chronic kidney disease; I25.10 Atherosclerotic heart disease of native coronary artery without angina pectoris; E87.6 Hypokalemia; E78.5 Hyperlipidemia, unspecified; J44.9 Chronic obstructive pulmonary disease, unspecified; E66.9 Obesity, unspecified; R09.02 Hypoxemia; K59.09 Other constipation; Z68.36 Body mass index [BMI] 36.0-36.9, adult; Z87.01 Personal history of pneumonia (recurrent); Z95.5 Presence of coronary angioplasty implant and graft; Z87.891 Personal history of nicotine dependence; Z79.4 Long term (current) use of insulin; Z20.822 Contact with and (suspected) exposure to COVID-19; Z85.820 Personal history of malignant melanoma of skin
CPT/HCPCS: J1756; P9047